=== PATIENT | male | born 1975 | race Caucasian/White ===

== ENCOUNTER → 2022-04-11 | Outpatient (CLI) | payer OTHER | LOC: COL.RAD 03-21 09:45 | DX: M47.812 Spondylosis without myelopathy or radiculopathy, cervical region (principal); G43.109 Migraine with aura, not intractable, without status migrainosus; S06.9X1S Unspecified intracranial injury with loss of consciousness of 30 minutes or less, sequela | CPT/HCPCS: A9575 ==

== ENCOUNTER → 2022-05-02 | Outpatient (CLI) | payer OTHER | LOC: COL.CARD 03-27 13:00 | DX: H55.00 Unspecified nystagmus (principal); R42 Dizziness and giddiness ==